=== PATIENT | male | born 2000 | race Caucasian/White ===

== ENCOUNTER 2019-01-31 10:57 | Emergency (ER) | payer BC ==
[2019-01-31 11:08] VITALS: BP 140/80
--- NOTE | 2019-01-31 11:42 | EDPHY ---
H & P Stated Complaint: lump on perineal area starting 6 days ago, no drainage - Personal History Current Tetanus/Diphtheria Vaccine: Unsure Current Tetanus Diphtheria and Acellular Pertussis (TDAP): Unsure - Medical/Surgical History Hx Asthma: No Hx Chronic Respiratory Disease: No Hx Diabetes: No Hx Cardiac Disease: No Hx Renal Disease: No Hx Cirrhosis: No Hx Alcoholism: No Hx HIV/AIDS: No Hx Splenectomy or Spleen Trauma: No Other PMH: none - Social History Smoking Status: Never smoked Time Seen by Provider: 01/31/19 11:08 HPI/ROS: Chief complaint: Rectal lesion History of present illness: This is a 18-year-old male who presents to the emergency department for evaluation of rectal lesion. Reports he has developed symptoms over the last 2-3 days. He reports mild discomfort. He denies precipitating factors. He denies alleviating factors. He denies other associated signs or symptoms including diarrhea, no constipation, no blood in the stool. In addition he has noted skin lesions on his body for number of months if not years and is wanting with they are. They do not cause any discomfort. (Jason Hernandes) - Physical Exam Exam: General Appearance: Alert and no distress. Eyes: Pupils equal and round no injection. Respiratory: Chest is non tender, lungs are clear to auscultation. Cardiac: regular rate and rhythm Gastrointestinal: Abdomen is soft and non tender, no masses, bowel sounds normal. Rectal: Patient has a small nonthrombosed hemorrhoid at the 3 o'clock position. Musculoskeletal: Ambulating without difficulty. Skin: Patient has multiple small cystic feeling lesions in his skin diffusely. (Jason Hernandes) Constitutional: Initial Vital Signs Temperature (C) 37.1 C 01/31/19 11:05 Heart Rate 70 01/31/19 11:05 Respiratory Rate 16 01/31/19 11:05 Blood Pressure 140/80 H 01/31/19 11:05 O2 Sat (%) 98 01/31/19 11:05 O2 Delivery Mode Room Air Allergies/Adverse Reactions: No Known Allergies Allergy (Unverified 01/31/19 11:08) Home Medications: Medication Instructions Recorded AMOXICILLIN 01/31/19 Medical Decision Making ED Course/Re-evaluation: Patient seen under the supervision of my secondary supervising physician Dr. Jahaira Mireles. Patient presents to the emergency department for what appears to be a small hemorrhoid. In addition he is complaining of skin lesions that he has had for a long time. Home care for the hemorrhoid is discussed. He is referred to general surgery for evaluation of the hemorrhoid and the skin lesions. He is given return precautions. Patient voiced understanding and agreement with plan. (Jason Hernandes) The patient was evaluated and managed by the physician claims assistant. I have reviewed this chart and I agree with the findings and plan of care as documented , as indicated by my signature. I am the secondary supervising physician. ( Jahaira Mireles) Differential Diagnosis: Included but not limited to external hemorrhoid, internal hemorrhoid, thrombosed hemorrhoid, cysts, lipoma (Jason Hernandes) Departure - Departure Disposition: Home, Routine, Self-Care Clinical Impression: Acute hemorrhoid, Skin lesions Condition: Good Instructions: Hemorrhoids (ED) Additional Instructions: Follow-up with a primary care doctor and a surgeon for continued evaluation and care Use an [id number] hemorrhoid cream such as Anusol HC Perform Sitz baths If symptoms worsen or new symptoms develop return to the emergency room for recheck Referrals: NONE *PRIMARY CARE P,. [Primary Care Provider] - As per Instructions Goldy Vazquez MD [[facility] [place] Primary Care Provider] - As per Instructions Faheem Llamas MD [Medical Doctor] - As per Instructions Conrad Huynh MD [Medical Doctor] - As per Instructions
== END 2019-01-31 11:50 | disposition home or self-care (01) ==
DX: K64.9 Unspecified hemorrhoids (principal); K62.89 Other specified diseases of anus and rectum